=== PATIENT | female | born 1970 | race Caucasian/White ===

== ENCOUNTER → 2021-08-10 | Outpatient (CLI) | payer OTHER | LOC: ECHO 08:44 | DX: I10 Essential (primary) hypertension (principal) | CPT/HCPCS: ECHO; 93306 ==

== ENCOUNTER → 2022-05-28 | Outpatient (CLI) | payer OTHER | LOC: US 13:14 | DX: N83.209 Unspecified ovarian cyst, unspecified side (principal); Z90.710 Acquired absence of both cervix and uterus | CPT/HCPCS: 76830 ==

== ENCOUNTER → 2022-06-03 | Outpatient (CLI) | payer OTHER | LOC: HEART 5 09:39 | DX: R06.02 Shortness of breath (principal); I10 Essential (primary) hypertension; R00.2 Palpitations; I08.1 Rheumatic disorders of both mitral and tricuspid valves | CPT/HCPCS: 93306 ==